=== PATIENT | female | born 1940 | race Caucasian/White ===

== ENCOUNTER → 2016-11-03 | Outpatient (CLI) | payer MEDICARE ==
[2016-11-03 10:10] LABS: BASOPHILS % (AUTO) 1 % (0-2); EOSINOPHILS # (AUTO) 0.2 10^3uL; EOSINOPHILS % (AUTO) 2 % (0-4); MEAN CORPUSCULAR HEMOGLOBIN 32.4 PG (26.0-34.0); MEAN CORPUSCULAR VOLUME 101 FL (80-100); MONOCYTES # (AUTO) 0.6 X10^3; MONOCYTES % (AUTO) 7 % (3-11); NEUTROPHILS # (AUTO) 4.9 X10^3; NEUTROPHILS % (AUTO) 63 % (51-67); PLATELET COUNT 254 10^3uL (150-450); WHITE BLOOD COUNT 7.68 10^3uL (4.0-11.0)
[2016-11-03 10:28] LABS: ALBUMIN 4.2 g/dL (3.4-5.0); ANION GAP 17.4 MEQ/L (3-15); CALCULATED IONIZED CALCIUM 3.7 mg/dL (3.8-4.6); TOTAL PROTEIN 7.9 g/dL (6.4-8.5)
== END ==
LOC: LAB 09:54
PROVIDERS: ATTEND Family Medicine
DX: L40.50 Arthropathic psoriasis, unspecified (principal)
CPT/HCPCS: 36415; 80053; 85025

== ENCOUNTER → 2016-12-01 | Outpatient (CLI) | payer MEDICARE ==
[2016-12-01 09:51] LABS: BASOPHILS % (AUTO) 1 % (0-2); EOSINOPHILS # (AUTO) 0.1 10^3uL; EOSINOPHILS % (AUTO) 2 % (0-4); LYMPHOCYTES # (AUTO) 1.5 X10^3; MEAN CORPUSCULAR HGB CONC 33.1 g/dL (31.0-37.0); MONOCYTES # (AUTO) 0.4 X10^3; MONOCYTES % (AUTO) 7 % (3-11); NEUTROPHILS # (AUTO) 4.5 X10^3; NEUTROPHILS % (AUTO) 68 % (51-67); PLATELET COUNT 254 10^3uL (150-450); WHITE BLOOD COUNT 6.54 10^3uL (4.0-11.0)
[2016-12-01 10:25] LABS: ALBUMIN 4.2 g/dL (3.4-5.0); ANION GAP 13.4 MEQ/L (3-15); CALCULATED IONIZED CALCIUM 3.8 mg/dL (3.8-4.6); TOTAL PROTEIN 7.9 g/dL (6.4-8.5)
[2016-12-01 10:38] LABS: MEAN CORPUSCULAR HEMOGLOBIN 33.4 PG (26.0-34.0); MEAN CORPUSCULAR VOLUME 101 FL (80-100)
== END ==
LOC: LAB 09:32
PROVIDERS: ATTEND Family Medicine
DX: L40.50 Arthropathic psoriasis, unspecified (principal)
CPT/HCPCS: 36415; 80053; 85025

== ENCOUNTER → 2017-01-05 | Outpatient (REF) | payer MEDICARE ==
[2017-01-05 11:28] LABS: BASOPHILS % (AUTO) 1 % (0-2); EOSINOPHILS # (AUTO) 0.1 10^3uL; EOSINOPHILS % (AUTO) 1 % (0-4); LYMPHOCYTES # (AUTO) 1.5 X10^3; MEAN PLATELET VOLUME 9.3 FL (6.0-9.5); MONOCYTES # (AUTO) 0.8 X10^3; MONOCYTES % (AUTO) 12 % (3-11); NEUTROPHILS # (AUTO) 4.3 X10^3; NEUTROPHILS % (AUTO) 65 % (51-67); PLATELET COUNT 262 10^3uL (150-450); WHITE BLOOD COUNT 6.63 10^3uL (4.0-11.0)
[2017-01-05 11:29] LABS: MEAN CORPUSCULAR HEMOGLOBIN 32.6 PG (26.0-34.0); MEAN CORPUSCULAR VOLUME 102 FL (80-100)
[2017-01-05 11:31] LABS: ALBUMIN 4.2 g/dL (3.4-5.0); ANION GAP 14.4 MEQ/L (3-15); CALCULATED IONIZED CALCIUM 3.8 mg/dL (3.8-4.6); TOTAL PROTEIN 7.7 g/dL (6.4-8.5)
== END ==
LOC: LAB 11:07
PROVIDERS: ATTEND Family Medicine
DX: E05.00 Thyrotoxicosis with diffuse goiter without thyrotoxic crisis or storm (principal); R00.2 Palpitations
CPT/HCPCS: 80053; 85025

== ENCOUNTER → 2017-03-02 | Outpatient (CLI) | payer MEDICARE ==
[2017-03-02 10:41] LABS: BASOPHILS % (AUTO) 0 % (0-2); EOSINOPHILS # (AUTO) 0.1 10^3uL; EOSINOPHILS % (AUTO) 2 % (0-4); LYMPHOCYTES # (AUTO) 1.6 X10^3; MEAN PLATELET VOLUME 9.2 FL (6.0-9.5); MONOCYTES # (AUTO) 0.6 X10^3; MONOCYTES % (AUTO) 10 % (3-11); NEUTROPHILS # (AUTO) 4.4 X10^3; NEUTROPHILS % (AUTO) 65 % (51-67); PLATELET COUNT 243 10^3uL (150-450); WHITE BLOOD COUNT 6.75 10^3uL (4.0-11.0)
[2017-03-02 10:42] LABS: MEAN CORPUSCULAR HGB CONC 31.5 g/dL (31.0-37.0); MEAN CORPUSCULAR VOLUME 102 FL (80-100)
[2017-03-02 11:08] LABS: ALBUMIN 4.1 g/dL (3.4-5.0); ANION GAP 13.2 MEQ/L (3-15); CALCULATED IONIZED CALCIUM 3.8 mg/dL (3.8-4.6); TOTAL PROTEIN 7.7 g/dL (6.4-8.5)
== END ==
LOC: LAB 10:23
PROVIDERS: ATTEND Family Medicine
DX: L40.50 Arthropathic psoriasis, unspecified (principal)
CPT/HCPCS: 36415; 80053; 85025